=== PATIENT | female | born 1970 | race Caucasian/White ===

== ENCOUNTER → 2019-04-30 | Outpatient (CLI) | payer OTHER ==
--- NOTE | 2019-04-30 09:27 | MM ---
Reason for exam: clinical finding. Last mammogram was performed 7 years and 10 months ago. History: Patient has history of other cancer at age 28. Family history of breast cancer in maternal grandmother at age 45 and breast cancer in sister at age 50. Physical Findings: Nurse Summary: 1.5cm nodule in the left breast at 1 'clock (nurse david). MG 3D Diag Mammo W/Cad [facility] Bilateral CC, MLO, and XCCL view(s) were taken. Prior study comparison: July 12, 2011, CAD bilateral diagnostic mammogram. The breast tissue is heterogeneously dense. This may lower the sensitivity of mammography. No suspicious abnormality on right or left on mammogram. These results were verbally communicated with the patient and result sheet given to the patient on 04/30/19. ASSESSMENT: Incomplete: need additional imaging evaluation, BI-RAD 0 RECOMMENDATION: Ultrasound of the left breast. (left upper outer quadrant palpable)
--- NOTE | 2019-04-30 09:31 | USB ---
Reason for exam: additional evaluation requested from abnormal screening. History: Patient has history of other cancer at age 28. Family history of breast cancer in maternal grandmother at age 45 and breast cancer in sister at age 50. US Breast Limited LT Left limited breast ultrasound including focal area of concern, retroareolar and axilla demonstrates no cystic or solid lesion seen. Focal dense tissue corresponds to the palpable abnormality. These results were verbally communicated with the patient and result sheet given to the patient on 04/30/19. ASSESSMENT: Negative, BI-RAD 1 RECOMMENDATION: Routine screening mammogram of both breasts in 1 year. Manage on a clinical basis with regard to left pain.
== END | disposition home or self-care (01) ==
LOC: RADMAMWWP 07:27
PROVIDERS: ATTEND Internal Medicine
DX: R92.8 Other abnormal and inconclusive findings on diagnostic imaging of breast (principal); N64.4 Mastodynia
CPT/HCPCS: 77062; 77066

== ENCOUNTER → 2020-08-28 | Outpatient (CLI) | payer OTHER ==
--- NOTE | 2020-08-29 11:32 | MM ---
Reason for exam: screening (asymptomatic). Last mammogram was performed 1 year and 4 months ago. History: Patient has history of other cancer at age 28. Family history of breast cancer in maternal grandmother at age 45 and breast cancer in sister at age 50. Physical Findings: A clinical breast exam by your physician is recommended on an annual basis and results should be correlated with mammographic findings. MG 3D Screening Mammo W/Cad Bilateral CC and MLO view(s) were taken. Prior study comparison: April 30, 2019, bilateral MG 3d diag mammo w/cad [facility]. The breast tissue is heterogeneously dense. This may lower the sensitivity of mammography. Possible developing nodularity anterior right MLO view just below the retroareolar plane. ASSESSMENT: Incomplete: need additional imaging evaluation, BI-RAD 0 RECOMMENDATION: Special view mammogram of the right breast. (3D) If lesion persists on supplemental views, image directed ultrasound is recommended. [facility] will attempt to contact patient to return for supplemental views and ultrasound if indicated.
== END | disposition home or self-care (01) ==
LOC: RADMAMWWP 07:15
PROVIDERS: ATTEND Internal Medicine
DX: Z12.31 Encounter for screening mammogram for malignant neoplasm of breast (principal)
CPT/HCPCS: 77063; 77067

== ENCOUNTER → 2020-09-03 | Outpatient (CLI) | payer OTHER ==
--- NOTE | 2020-09-03 14:59 | MM ---
Reason for exam: additional evaluation requested from abnormal screening. Last mammogram was performed less than 1 month ago. History: Patient has history of other cancer at age 28. Family history of breast cancer in maternal grandmother at age 45 and breast cancer in sister at age 50. Physical Findings: Nurse did not find any significant physical abnormalities on exam. MG 3D Work Up W/Cad RT Spot compression CC, spot compression MLO, and ML view(s) were taken of the right breast. Prior study comparison: August 28, 2020, bilateral MG 3d screening mammo w/cad. April 30, 2019, bilateral MG 3d diag mammo w/cad [facility]. The breast tissue is heterogeneously dense. This may lower the sensitivity of mammography. There is no discrete abnormality. These results were verbally communicated with the patient and result sheet given to the patient on 09/03/20. ASSESSMENT: Benign, BI-RAD 2 RECOMMENDATION: Return to routine screening mammogram schedule for both breasts.
== END | disposition home or self-care (01) ==
LOC: RADMAMWWP 13:28
PROVIDERS: ATTEND Internal Medicine
DX: R92.8 Other abnormal and inconclusive findings on diagnostic imaging of breast (principal)
CPT/HCPCS: 77061; 77065

== ENCOUNTER → 2021-04-30 | Outpatient (CLI) | payer OTHER ==
[2021-04-30 15:40] LABS: Basophils # (A) 0.1 k/uL (0-0.2); Basophils % (A) 1 %; Eosinophils # (A) 0.1 k/uL (0-0.7); Eosinophils % (A) 2 %; HCT 43.9 % (34.0-46.0); HGB 14.2 gm/dL (11.4-16.0); Lymphocytes # (A) 3.2 k/uL (1.0-4.8); Lymphocytes % (A) 49 %; MCH 31.9 pg (25.0-35.0); MCHC 32.3 g/dL (31.0-37.0); MCV 98.8 fL (80.0-100.0); Mean Platelet Volume 8.3; Monocytes # (A) 0.3 k/uL (0-1.0); Monocytes % (A) 5 %; Neutrophils # (A) 2.7 k/uL (1.3-7.7); Neutrophils % (A) 41 %; Platelet Count 308 k/uL (150-450); RBC 4.45 m/uL (3.80-5.40); RDW 12.6 % (11.5-15.5); WBC 6.5 k/uL (3.8-10.6)
== END | disposition home or self-care (01) ==
LOC: LABPAT 14:37
PROVIDERS: ATTEND Obstetrics & Gynecology Obstetrics
DX: Z01.812 Encounter for preprocedural laboratory examination (principal); N92.0 Excessive and frequent menstruation with regular cycle
CPT/HCPCS: 36415; 85025

== ENCOUNTER 2021-05-12 07:16 | Day surgery (SDC) | payer OTHER ==
[2021-05-08 13:32] VITALS: BMI 23.8
[~2021-05-12 07:16] MED LIST: Pre Op ABX Message 1 EACH MISC MISCELLANE ONE
[2021-05-12] MEDS ORDERED: LIDOCAINE 1% (10MG/ML) FOR IV START INTRADERMA PRN (07:37)
[2021-05-12] MEDS ORDERED: ONDANSETRON 4 MG/2 ML VIAL IVP ONE (07:37)
[2021-05-12] MEDS ORDERED: DEXAMETHASONE SOD PHOSPHATE 4 MG/ML 1 ML VIAL IV ONE (07:37)
[2021-05-12] MEDS ORDERED: SCOPOLAMINE 1.5MG/72HR PATCH TRANSDERM ONE (07:37)
[2021-05-12] MEDS ORDERED: LACTATED RINGERS 1,000 ML IV SCH (07:37)
--- NOTE | 2021-05-12 08:57 | P.HPOB ---
History of Present Illness H&P Date: 05/12/21 Chief Complaint: Heavy menstrual bleeding This is a 50-year-old female that presented with complaints of heavy menstrual bleeding, patient states her menstrual cycles are regular occurring every 28-30 days lasting 7-10 days. Patient states she has heavy bleeding with clots for 5- 6 days and then spotting. Patient denies dysmenorrhea. Patient desires endometrial ablation given heavy menstrual bleeding. Ultrasound was performed revealing a normal-size uterus of 8 cm. Review of Systems Constitutional: Denies chills, Denies fatigue, Denies fever Ears, nose, mouth and throat: Denies headache Cardiovascular: Denies leg edema Respiratory: Denies dyspnea Gastrointestinal: Denies nausea, Denies vomiting Genitourinary: Denies Past Medical History Past Medical History: GERD/Reflux, Hyperlipidemia Additional Past Medical History / Comment(s): Hx of Acid Reflux and Hyperlipidemia 18 yrs ago, no problems since. History of Any Multi-Drug Resistant Organisms: None Reported Past Surgical History: Section Additional Past Surgical History / Comment(s): Cold knife conization, Section X3. Past Anesthesia/Blood Transfusion Reactions: No Reported Reaction Past Psychological History: ADD/ADHD, Bipolar, Depression Smoking Status: Current every day smoker Past Alcohol Use History: Rare Additional Past Alcohol Use History / Comment(s): Has been smoking for 20 yrs, had quit for 8 yrs, 1/2 ppd. Past Drug Use History: None Reported - Past Family History Sister(s) Family Medical History: Cancer Additional Family Medical History / Comment(s): Breast cancer. Brother(s) Family Medical History: Deep Vein Thrombosis (DVT), Myocardial Infarction ([place]) Medications and Allergies Home Medications Medication Instructions Recorded Confirmed Type FLUoxetine HCL [PROzac] 10 mg PO QAM 05/08/21 05/12/21 History Multivitamin [Multivitamins Adult 1 each PO DAILY 05/08/21 05/08/21 History Gummies] Granville-3 Fatty Acids [Granville-3] 1,000 mg PO DAILY 05/08/21 05/08/21 History Allergies Allergy/AdvReac Type Severity Reaction Status Date / Time No Known Allergies Allergy Verified 05/12/21 07:52 Exam Osteopathic Statement: *. No significant issues noted on an osteopathic structural exam other than those noted in the History and Physical/Consult. 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 There is no lower extremity edema appreciated. Assessment and Plan (1) Menorrhagia Current Visit: Yes Status: Acute Code(s): N92.0 - EXCESSIVE AND FREQUENT MENSTRUATION WITH REGULAR CYCLE SNOMED Code(s): 453487581 Plan: 42-year-old female with known heavy menstrual bleeding, desires endometrial ablation. We'll proceed with hysteroscopy, dilation and curettage with endometrial ablation. Patient is counseled on this procedure and information is given regarding the procedure. Risser reviewed including but not limited to infection, bleeding, failure of the procedure were uterine perforation. Patient states understanding and wishes to proceed.
[2021-05-12] MEDS ORDERED: PROPOFOL 10 MG/ML 20 ML VIAL IV ONE (09:23)
[2021-05-12] MEDS ORDERED: LIDOCAINE 1% INJ 10MG/ML (20 ML MDV) ONE (09:23)
[2021-05-12] MEDS ORDERED: fentaNYL (PF) 50 MCG/ML 2 ML AMP ONE (09:23)
[2021-05-12] MEDS ORDERED: KETOROLAC 15 MG/ML 1 ML VIAL ONE (09:23)
[2021-05-12] MEDS ORDERED: MIDAZOLAM 2 MG/2 ML VIAL ONE (09:23)
[2021-05-12 10:08] VITALS: TEMP 97.2
[2021-05-12] MEDS: HYDROmorphone 0.5 MG/0.5 ML SYRINGE IVP PRN ×4 (10:18→11:01)
--- NOTE | 2021-05-12 10:24 | P.OP ---
Date of Procedure: 05/12/21 Preoperative Diagnosis: menorrhagia Postoperative Diagnosis: same Procedure(s) Performed: hysteroscopy, dilation and curettage, endometrial ablation Anesthesia: GETA Surgeon: Karolina Hollis Estimated Blood Loss (ml): 5 IV fluids (ml): 500 Urine output (ml): 100 Pathology: other (endometrial curettings) Condition: stable Disposition: PACU Indications for Procedure: heavy menstrual bleeding, normal-appearing uterus on ultrasound along with no adnexal masses appreciated on ultrasound Operative Findings: proliferative endometrial cavity is appreciated, thickened posterior endometrium is appreciated, grossly normal Description of Procedure: patient was taken back to the operating suite where general anesthesia was obtained without difficulty by the anesthesia department. She is then prepped and draped in the normal sterile fashion in the dorsal lithotomy position. A red rubber catheter is used to drain the bladder clear yellow urine. Weighted speculum was placed in the posterior vaginal vault, the anterior lip of the cervix is visualized and grasped with a single-tooth tenaculum. The endocervical canal was then dilated and a hysteroscope was placed through the cervix and toward the endometrial cavity. Overall the endometrial cavity appears normal, proliferative endometrium with a thickened posterior wall was appreciated. Pictures were taken and the hysteroscope was removed. Sharp curettage was then performed and the specimen was then sent to pathology for analysis. The NovaSure device was then opened and set to the patient's uterine measurements a cavity length of 4, width of 2.5, power of 55 for just over 1 minute total cycle length. Cycle was allowed to proceed after cavity assessment was passed. After the cycle was completed the NovaSure was removed without difficulty. The single-tooth tenaculum was taken off of the anterior lip of the cervix hemostasis was appreciated. all instruments were removed from the patient's vaginal vault, Toradol was given to the patient intraoperatively. All counts were noted be correct 2 at the end of the procedure. Patient tolerated procedure well and was taken the recovery room awake in stable con dition.
[2021-05-12] MEDS ORDERED: diphenhydrAMINE 50 MG/ML 1 ML VIAL IVP ONE (11:19)
[2021-05-12 11:35] VITALS: RESP 18
[2021-05-12 11:56] VITALS: BP 153/79; PULSE 73
== END 2021-05-12 12:07 | disposition home or self-care (01) ==
LOC: OR 07:16
PROVIDERS: ATTEND Obstetrics & Gynecology Obstetrics
DX: N85.9 Noninflammatory disorder of uterus, unspecified (principal); N92.0 Excessive and frequent menstruation with regular cycle; E78.5 Hyperlipidemia, unspecified; F31.9 Bipolar disorder, unspecified; K21.9 Gastro-esophageal reflux disease without esophagitis; F90.9 Attention-deficit hyperactivity disorder, unspecified type; F17.210 Nicotine dependence, cigarettes, uncomplicated; Z85.41 Personal history of malignant neoplasm of cervix uteri; Z98.891 History of uterine scar from previous surgery; Z98.890 Other specified postprocedural states; Z81.8 Family history of other mental and behavioral disorders; Z80.3 Family history of malignant neoplasm of breast; Z80.8 Family history of malignant neoplasm of other organs or systems; Z82.69 Family history of other diseases of the musculoskeletal system and connective tissue; Z82.49 Family history of ischemic heart disease and other diseases of the circulatory system; Z79.899 Other long term (current) drug therapy
CPT/HCPCS: 58563; 81025; 88305; J2250; J1200; J1100; J2405; J2001; J3010; J1885; J2704; J1170

== ENCOUNTER → 2021-11-24 | Outpatient (CLI) | payer OTHER ==
--- NOTE | 2021-11-25 10:16 | MM ---
Reason for Exam: Screening (asymptomatic). Last mammogram was performed 1 year(s) and 3 month(s) ago. Patient History: Menarche at age 11. First Full-Term at age 27. Other cancer, age 28. Maternal grandmother had breast cancer, age 45. Sister had breast cancer, age 50. Risk Values: Olive 5 year model risk: 2.0%. NCI Lifetime model risk: 18.6%. Prior Study Comparison: 07/12/2011 Bilateral Diagnostic Mammogram, [facility]. 04/30/2019 Bilateral Diagnostic Mammogram, [facility]. 08/28/2020 Bilateral Screening Mammogram, [facility]. 09/03/2020 Right Diagnostic Mammogram, [facility]. Tissue Density: The breast tissue is heterogeneously dense. This may lower the sensitivity of mammography. Findings: Analyzed By CAD. There is no suspicious group of microcalcifications or new suspicious mass in either breast. Overall Assessment: Negative, BI-RAD 1 Management: Screening Mammogram of both breasts in 1 year. Some advise bilateral breast ultrasound surveillance in patients with background dense tissue. Electronically signed and approved by: Bertram Saunders M.D.
== END | disposition home or self-care (01) ==
LOC: RADMAMWWP 06:55
PROVIDERS: ATTEND Obstetrics & Gynecology Obstetrics
DX: Z12.31 Encounter for screening mammogram for malignant neoplasm of breast (principal); Z80.3 Family history of malignant neoplasm of breast
CPT/HCPCS: 77063; 77067

== ENCOUNTER → 2023-01-21 | Outpatient (CLI) | payer BC ==
--- NOTE | 2023-01-21 07:32 | MM ---
Reason for Exam: Screening (asymptomatic). Last mammogram was performed 1 year(s) and 2 month(s) ago. Patient History: Menarche at age 11. First Full-Term at age 27. Other cancer, age 28. Maternal grandmother had breast cancer, age 45. Sister had breast cancer, age 50. Risk Values: Olive 5 year model risk: 2.1%. NCI Lifetime model risk: 18.3%. Prior Study Comparison: 08/28/2020 Bilateral Screening Mammogram, [facility]. 09/03/2020 Right Diagnostic Mammogram, [facility]. 11/24/2021 Bilateral MG 3D screening mammo w/cad, [facility]. Tissue Density: The breast tissue is heterogeneously dense. This may lower the sensitivity of mammography. Findings: Analyzed By CAD. There is no suspicious group of microcalcifications or new suspicious mass in either breast. Overall Assessment: Negative, BI-RAD 1 Management: Screening Mammogram of both breasts in 1 year. A clinical breast exam by your physician is recommended on an annual basis and results should be correlated with mammographic findings. Note on Olive scores and lifetime risk: 1. A Olive score greater than 3% is considered moderate risk. If this is the case, consider specialist referral to assess eligibility for a risk reducing agent. If overall lifetime risk for the development of breast cancer is 20% or higher, the patient may qualify for future screening with alternating mammogram and breast MRI. Electronically signed and approved by: Rosalino Vivar D.O.
== END | disposition home or self-care (01) ==
LOC: RADMAMWWP 06:52
PROVIDERS: ATTEND Obstetrics & Gynecology Obstetrics
DX: Z12.31 Encounter for screening mammogram for malignant neoplasm of breast (principal); Z80.3 Family history of malignant neoplasm of breast
CPT/HCPCS: 77063; 77067

== ENCOUNTER 2023-06-22 07:14 | Emergency (ER) | payer BC ==
[2023-06-22 08:03] VITALS: RESP 18
--- NOTE | 2023-06-22 08:13 | ED ---
General Adult HPI - General Chief complaint: Extremity Injury, Upper Stated complaint: L shoulder injury Time Seen by Provider: 06/22/23 07:19 Source: patient Mode of arrival: ambulatory Limitations: no limitations - History of Present Illness Initial comments: Dictation was produced using [employer] dictation software. please excuse any grammatical, word or spelling errors. Chief Complaint: 52-year-old female with 2 days of left shoulder pain History of Present Illness: 52-year-old female presents to the emergency department with left shoulder pain. 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 States that she does not remember any sort of movement that caused her pain but she woke up this morning with worsening left shoulder pain. States that she has had difficulty lifting her arm up above her head. She states that the pain is all anterior. No numbness ting or paresthesias to the distal extremity. Denies any previous injury to the left shoulder The ROS documented in this emergency department record has been reviewed and confirmed by me. Those systems with pertinent positive or negative responses have been documented in the HPI. All other systems are other negative and/or noncontributory. - Related Data Home Medications Medication Instructions Recorded Confirmed FLUoxetine HCL [PROzac] 10 mg PO QAM 05/08/21 05/12/21 Multivitamin [Multivitamins Adult 1 each PO DAILY 05/08/21 05/08/21 Gummies] Warriors Mark-3 Fatty Acids [Warriors Mark-3] 1,000 mg PO DAILY 05/08/21 05/08/21 Allergies Allergy/AdvReac Type Severity Reaction Status Date / Time No Known Allergies Allergy Verified 06/22/23 07:38 Review of Systems ROS Statement: Those systems with pertinent positive or pertinent negative responses have been documented in the HPI. ROS Other: All systems not noted in ROS Statement are negative. Past Medical History Past Medical History: GERD/Reflux, Hyperlipidemia Additional Past Medical History / Comment(s): Hx of Acid Reflux and Hyperlipidemia 18 yrs ago, no problems since. History of Any Multi-Drug Resistant Organisms: None Reported Past Surgical History: Section Additional Past Surgical History / Comment(s): Cold knife conization, Section X3. Past Anesthesia/Blood Transfusion Reactions: No Reported Reaction Past Psychological History: ADD/ADHD, Bipolar, Depression Smoking Status: Current every day smoker Past Alcohol Use History: Rare Past Drug Use History: None Reported - Past Family History Sister(s) Family Medical History: Cancer Additional Family Medical History / Comment(s): Breast cancer. Brother(s) Family Medical History: Deep Vein Thrombosis (DVT), Myocardial Infarction ([place]) General Exam - General Exam Comments Initial Comments: General: Well-appearing, nontoxic, no acute distress. Head: Normocephalic, atraumatic Eyes: PERRLA, EOMI ENT: Airway patent Chest: Nonlabored breathing Skin: No visual rash, normal skin tone Neuro: Alert and oriented 3 Musculoskeletal: No gross abnormalities Left shoulder: Palpatory tenderness to the left anterior shoulder, pain with internal rotation, abduction with minimal active range of motion to 70 degrees. Limitations: no limitations Course Vital Signs 06/22/23 07:35 Temperature 98.2 F Pulse Rate 81 Respiratory 18 Rate Blood Pressure 169/97 O2 Sat by Pulse 99 Oximetry Medical Decision Making - Medical Decision Making Was pt. sent in by a medical professional or institution (, PA, HAND SALTER, urgent care, hospital, or group home...) When possible be specific @ -No Did you speak to anyone other than the patient for history (EMS, parent, family, police, friend...)? What history was obtained from this source @ -No Did you review nursing and triage notes (agree or disagree)? Why? @ -I reviewed and agree with nursing and triage notes Were old charts reviewed (outside hosp., previous admission, EMS record, old EKG, old radiological studies, urgent care reports/EKG's, group home records)? Report findings @ -No old charts were reviewed Differential Diagnosis (chest pain, altered mental status, abdominal pain women, abdominal pain men, vaginal bleeding, musculoskeletal, weakness, fever, dyspnea, syncope, headache, dizziness, GI bleed, back pain, seizure, CVA, palpatations, mental health)? @ -Not applicable EKG interpreted by me (3pts min.). @ -None done X-rays interpreted by me (1pt min.). @ -Left shoulder x-ray shows no acute processes CT interpreted by me (1pt min.). @ -None done U/S interpreted by me (1pt. min.). @ -None done What testing was considered but not performed or refused? (CT, X-rays, U/S, labs )? Why? @ -None What meds were considered but not given or refused? Why? @ -None Did you discuss the management of the patient with other professionals (professionals i.e. , PA, HAND SALTER, lab, RT, psych nurse, social work supervisor, art gallery director, teacher, event security officer, case liner)? Give summary @ -No Was smoking cessation discussed for >3mins.? @ -No Was critical care preformed (if so, how long)? @ -No Were there social determinants of health that impacted care today? How? (Homelessness, low income, unemployed, alcoholism, drug addiction, transportation, low edu. Level, literacy, decrease access to med. care, intermediate, rehab)? @ -No Was there de-escalation of care discussed even if they declined (Discuss DNR or withdrawal of care, Hospice)? DNR status @ -No What co-morbidities impacted this encounter? (DM, HTN, Smoking, COPD, CAD, Cancer, CVA, ARF, Chemo, Hep., AIDS, mental health diagnosis, sleep apnea, morbid obesity)? @ -None Was patient admitted / discharged? Hospital course, mention meds given and route, prescriptions, significant lab abnormalities, going to OR and other pertinent info. @ -52-year-old female presents with left atraumatic shoulder pain. Vital signs stable. Patient well-appearing at bedside. X-ray shows no acute processes. Patient likely has left shoulder strain versus rotator cuff inflammation. Patient discharged advised follow-up with primary care doctor. Patient provided work note as requested Undiagnosed new problem with uncertain prognosis? @ -No Drug Therapy requiring intensive monitoring for toxicity (Heparin, Nitro, Insulin, Cardizem)? @ -No Were any procedures done? @ -No Diagnosis/symptom? Acute, or Chronic, or Acute on Chronic? Uncomplicated (without systemic symptoms) or Complicated (systemic symptoms)? @ -Traumatic left shoulder pain Side effects of treatment? @ -No Exacerbation, Progression, or Severe Exacerbation? @ -No Poses a threat to life or bodily function? How? (Chest pain, [place], [place], pneumonia, PE, COPD, DKA, ARF, appy, cholecystitis, CVA, Diverticulitis, Homicidal, Suicidal, threat to staff... and all critical care pts) @ -yes Disposition Clinical Impression: Shoulder strain Disposition: HOME SELF-CARE Condition: Good Instructions (If sedation given, give patient instructions): Shoulder Sprain (ED) Is patient prescribed a controlled substance at d/c from ED?: No Referrals: Zeke Martinez MD [Primary Care Provider] - 1-2 days Time of Disposition: 09:01
--- NOTE | 2023-06-22 08:19 | XR ---
EXAMINATION TYPE: XR shoulder complete LT DATE OF EXAM: 06/22/2023 8:09 AM INDICATION: Patient age:Female; 52 years old; Reason for study: atraumatic anterior shoulder pain; COMPARISON: None TECHNIQUE: The left shoulder was examined in AP, internally rotated and scapular Y projections. . FINDINGS: No evidence of acute osseous pathology, joint dislocation, or soft tissue swelling. The remaining por tions of the visualized chest are unremarkable. IMPRESSION: No acute osseous pathology.
[2023-06-22 09:32] VITALS: BP 150/79; PULSE 80; TEMP 98.1
== END 2023-06-22 09:29 | disposition home or self-care (01) ==
LOC: EC 07:14
DX: S46.912A Strain of unspecified muscle, fascia and tendon at shoulder and upper arm level, left arm, initial encounter (principal); F31.9 Bipolar disorder, unspecified; F90.9 Attention-deficit hyperactivity disorder, unspecified type; F17.200 Nicotine dependence, unspecified, uncomplicated; Z79.899 Other long term (current) drug therapy; X50.0XXA Overexertion from strenuous movement or load, initial encounter
CPT/HCPCS: 99283

== ENCOUNTER → 2024-02-14 | Outpatient (CLI) | payer BC ==
--- NOTE | 2024-02-16 08:53 | MM ---
Reason for Exam: Screening (asymptomatic). Last screening mammogram was performed 12 month(s) ago. Patient History: Menarche at age 11. First Full-Term at age 27. Postmenopausal. Other cancer, age 28. Patient used Hormonal Contraceptives for 10 years. Maternal grandmother had breast cancer, age 45. Sister had breast cancer, age 50. Risk Values: Olive 5 year model risk: 2.2%. NCI Lifetime model risk: 18.0%. Prior Study Comparison: 09/03/2020 Right Diagnostic Mammogram, [facility]. 11/24/2021 Bilateral MG 3D screening mammo w/cad, [facility]. 01/21/2023 Bilateral MG 3D screening mammo w/cad, [facility]. Tissue Density: The breasts are heterogeneously dense, which may obscure small masses. Findings: Analyzed By CAD. There is no suspicious group of microcalcifications or new suspicious mass in either breast. Benign-appearing calcifications. Overall Assessment: Benign, BI-RAD 2 Management: Screening Mammogram of both breasts in 1 year. . Patient should continue monthly self-breast exams. A clinical breast exam by your physician is recommended on an annual basis. This exam should not preclude additional follow-up of suspicious palpable abnormalities. Note on Olive scores and lifetime risk: 1. A Olive score greater than 3% is considered moderate risk. If this is the case, consider specialist referral to assess eligibility for a risk reducing agent. 2. If overall lifetime risk for the development of breast cancer is 20% or higher, the patient may qualify for future screening with alternating mammogram and breast MRI. [facility], , 02/16/2024 8:50 AM. Electronically signed and approved by: Leonidas Kraft M.D. Radiologis
== END | disposition home or self-care (01) ==
LOC: RADMAMWWP 07:42
PROVIDERS: ATTEND Obstetrics & Gynecology Obstetrics
DX: Z12.31 Encounter for screening mammogram for malignant neoplasm of breast
CPT/HCPCS: 77063; 77067